=== PATIENT | female | born 1940 | race Caucasian/White ===

== ENCOUNTER 2019-09-09 04:31 | Emergency (ER) | payer MEDICARE, OTHER ==
[~2019-09-09] VITALS: Ht 162.6 cm; Wt 65.8 kg
[2019-09-09 04:45] VITALS: BP 133/69
--- NOTE | 2019-09-09 04:45 | NUR ---
ED Nurse Note: Patient was BIBA from [facility] due to SOB. Per staff from facility, pt's O2sat went down to 89% on O2 via NC, given albuterol 2.5mg via face mask during tx and O2sat went up to 90%. Patient was placed on nonrebreather mask, O2sat went up to 96%, pt sent for eval. AAO x0, nonambulatory, VSS at this time, skin is intact.
--- NOTE | 2019-09-09 04:45 | Emergency Room Report ---
History of Present Illness General Chief Complaint: Dyspnea/Respdistress Source: Medical Record Present Illness HPI Is a 78-year-old female, in from care home. She has history of Down syndrome , undergo mental delay. She presents with chief complaint of shortness of breath. Onset tonight. Her oxygenation was 88 to 89% while she was getting a breathing treatment. Unable to get any other history in this patient. She appeared to be coughing and dyspneic. No fever chills. No nausea no vomiting. History is through the care home note and with EMS. Unable get any other history from this patient because of her condition. Allergies: Coded Allergies: No Known Allergies (Unverified , 09/09/19) Patient History Past Medical History: see triage record, old chart reviewed Past Surgical History: other Pertinent Family History: none Social History: Denies: smoking Now: No Immunizations: other Reviewed Nursing Documentation: PMH: Agreed; PSxH: Agreed Nursing Documentation-PMH Hx Hypertension: Yes - HLD Hx Diabetes: Yes Review of Systems Eye: Denies: eye pain, blurred vision ENT: Denies: ear pain, nose congestion, throat swelling Respiratory: Reports: shortness of breath; Denies: cough Cardiovascular: Denies: chest pain, palpitations Gastrointestinal: Denies: abdominal pain, diarrhea, nausea, vomiting Musculoskeletal: Denies: back pain, joint pain Skin: Denies: rash Neurological: Denies: headache, numbness Endocrine: Denies: increased thirst, increased urine Hematologic/Lymphatic: Denies: easy bruising All Other Systems: negative except mentioned in HPI Physical Exam Vital Signs Date Time Temp Pulse Resp B/P (MAP) Pulse Ox O2 Delivery O2 Flow Rate FiO2 09/09/19 04:28 99.7 89 18 127/69 (88) 94 Room Air Vitals with low-grade fever Sp02 EP Interpretation: reviewed, abnormal - Pulse oxing 90% on room air General Appearance: well appearing, alert, mild distress, other - Patient does not have features of Down's syndrome. Head: normocephalic, atraumatic Eyes: bilateral eye PERRL, bilateral eye EOMI ENT: hearing grossly normal, normal pharynx Neck: full range of motion, supple, no meningismus Respiratory: chest non-tender, accessory muscle use, rhonchi Cardiovascular #1: regular rate, rhythm, no murmur Gastrointestinal: normal bowel sounds, non tender, no mass, no organomegaly, no bruit, non-distended Musculoskeletal: back normal Psychiatric: mood/affect normal Medical Decision Making Diagnostic Impression: Primary Impression: HCAP (healthcare-associated pneumonia) Additional Impressions: Sepsis Qualified Codes: A41.9 - Sepsis, unspecified organism Acute prerenal azotemia ER Course Patient presents with low-grade fever, hypoxia, and questionable retrocardiac infiltrate on the chest x-ray. This is consistent with pneumonia. Because she is a care home, wide spectrum antibiotics given. V fluids given. No evidence of ACS, PE, dissection to name a few. Of her age, comorbidities and infection, she warrant admission for IV antibiotics IV fluids. Patient will be admitted here versus transfer based on insurance. Sepsis reevaluation: Vital signs: Heart rate 84, pulse ox 98% on 2 L. Story rate 18. General appearance: More alert Cardiovascular: Regular rate and rhythm Lungs: Better aeration Abdomen: Soft Extremity: No edema Skin: No mottling EKG Diagnostic Results Rate: normal Rhythm: NSR ST Segments: other - NSST changes Rhythm Strip Diag. Results EP Interpretation: yes Rate: 83 Rhythm: NSR, no PVC's, no ectopy Chest X-Ray Diagnostic Results Chest X-Ray Diagnostic Results : Chest X-Ray Ordered: Yes # of Views/Limited/Complete: 1 View Indication: Shortness of Breath EP Interpretation: Yes Interpretation: no effusion, no pneumothorax, other - retrocardiac infiltrates vs atelectasis Impression: Other - retrocardiac infiltrate Electronically Signed by: Kevin Ashraf MD Last Vital Signs Date Time Temp Pulse Resp B/P (MAP) Pulse Ox O2 Delivery O2 Flow Rate FiO2 09/09/19 04:28 99.7 89 18 127/69 (88) 94 Room Air Status: improved Disposition: [facility]OSP Condition: Stable Kevin Ashraf MD Sep 09, 2019 04:45
[2019-09-09 05:08] LABS: APPEARANCE,URINE CLEAR; BILIRUBIN, URINE NEGATIVE (NEGATIVE); GLUCOSE, URINE (UA) NEGATIVE (NEGATIVE); KETONES,URINE 1+ (NEGATIVE); LEUKOCYTE ESTERASE ,URINE 2+ (NEGATIVE); NITRITE,URINE NEGATIVE (NEGATIVE); PH,URINE 7 (4.5-8.0); PROTEIN,URINE 1+ (NEGATIVE); UROBILINOGEN,URINE NORMAL MG/DL (0.0-1.0)
[2019-09-09 05:10] LABS: COLOR,URINE YELLOW; HEMATOCRIT 40.9 % (37.0-47.0); HEMOGLOBIN 13.8 G/DL (12.0-16.0); MEAN CORPUSCULAR VOLUME 78 FL (80-99); PLATELET COUNT 356 K/UL (150-450); RED BLOOD COUNT 5.27 M/UL (4.20-5.40); RED CELL DISTRIBUTION WIDTH 17.9 % (11.6-14.8); WHITE BLOOD COUNT 18.9 K/UL (4.8-10.8)
[2019-09-09] MEDS ORDERED: ASPIRIN-LOW81 MG ORAL (05:18)
[2019-09-09] MEDS ORDERED: FISH OIL CAP1000 MG GT (05:18)
[2019-09-09] MEDS ORDERED: DONEPEZIL HCL10 MG ORAL (05:18)
[2019-09-09] MEDS ORDERED: CALCIUM 500 +1 EAC6 PO (05:18)
[2019-09-09] MEDS ORDERED: PANTOPRAZOLE SO20 MG ORAL (05:18)
[2019-09-09] MEDS ORDERED: FLEET ENEMA133 M1 RC (05:18)
[2019-09-09] MEDS ORDERED: SIMVASTATIN20 MG ORAL (05:18)
[2019-09-09] MEDS ORDERED: NOVOLIN R100 UNIT/1 SUBQ (05:18)
[2019-09-09] MEDS ORDERED: BENAZEPRIL HCL5 MG ORAL (05:18)
[2019-09-09] MEDS ORDERED: VITAMIN D31000 UNI4 PO (05:18)
[2019-09-09] MEDS ORDERED: LEVOTHYROXINE75 MCG ORAL (05:18)
[2019-09-09] MEDS ORDERED: MULTIVITAMINS1 EA14 PO (05:18)
[2019-09-09] MEDS ORDERED: MAGNESIUM OXID240 MG GT (05:18)
[2019-09-09] MEDS ORDERED: DOCUSATE SODIU100 M2 GT (05:18)
[2019-09-09] MEDS ORDERED: FOLIC ACID1 MG GT (05:18)
[2019-09-09] MEDS ORDERED: BISACODYL10 M1 RC (05:18)
[2019-09-09 05:20] LABS: ANION GAP 9 mmol/L (5-15); BLOOD UREA NITROGEN 38 mg/dL (7-18); CALCIUM 10.2 MG/DL (8.5-10.1); CARBON DIOXIDE 27 MMOL/L (21-32); CHLORIDE 99 MMOL/L (98-107); CREATININE 1.1 MG/DL (0.55-1.30); POTASSIUM 4.8 MMOL/L (3.5-5.1); SODIUM 135 MMOL/L (136-145)
[2019-09-09] MEDS ORDERED: Cefepime HCl 1 GM in D5W 55 ML IVPB ONE (05:30)
[2019-09-09 05:33] LABS: ALANINE AMINOTRANSFERASE 70 U/L (12-78); ALBUMIN 3.4 G/DL (3.4-5.0); ALBUMIN/GLOBULIN RATIO 0.6 (1.0-2.7); ALKALINE PHOSPHATASE 100 U/L (46-116); ASPARTATE AMINO TRANSFERASE 45 U/L (15-37); BILIRUBIN,TOTAL 0.3 MG/DL (0.2-1.0); CKMB 0.6 NG/ML (0.0-3.6)
[2019-09-09 07:04] VITALS: BP 132/70
--- NOTE | 2019-09-09 07:15 | NUR ---
ED Nurse Note: Received patient from ANURAG Rodriguez. Patient is laying comfortably in bed. Patient is on 2L NC O2sat is 98%. Patient has no signs of respiratory distress at this time.
--- NOTE | 2019-09-09 07:18 | NUR ---
HAND-OFF: Report given to ANURAG Osman. Patient's VSS at this time.
--- NOTE | 2019-09-09 07:44 | Diagnostic Imaging Report ---
EXAM: XR Chest, 1 View CLINICAL HISTORY: SOB TECHNIQUE: Frontal view of the chest. COMPARISON: none FINDINGS: Lungs: Unremarkable. No consolidation. Pleural space: Unremarkable. No pneumothorax. Heart: Unremarkable. No cardiomegaly. Mediastinum: Unremarkable. Bones/joints: Unremarkable. IMPRESSION: No acute cardiopulmonary process.
--- NOTE | 2019-09-09 07:50 | NUR ---
ED Nurse Note: Called [facility] and gave report to ANURAG Morton.
[2019-09-09 08:31] VITALS: BP 124/52
[2019-09-09 09:20] VITALS: BP 117/62
--- NOTE | 2019-09-09 09:20 | NUR ---
ED Nurse Note: Patient is being transfered with [facility]. Patient is aox1, on 2L NC with stable vital signs. patient transfered with critical care transport. Patient is clean and dry with intact skin.
== END 2019-09-09 09:20 | disposition short-term general hospital (02) ==
LOC: EDBD 04:31 → EMR 04:48
DX: J18.9 Pneumonia, unspecified organism (principal); A41.9 Sepsis, unspecified organism; R79.89 Other specified abnormal findings of blood chemistry; Q90.9 Down syndrome, unspecified; E11.9 Type 2 diabetes mellitus without complications; E78.5 Hyperlipidemia, unspecified
CPT/HCPCS: 36415; 71045; 80053; 81003; 82553; 82962; 83605; 83880; 84484; 85007; 85025; 85610; 85730; 87040; 87081; 96361; 96365; 96367; 99285; J0692; J1956